=== PATIENT | male | born 1970 | race Caucasian/White ===

== ENCOUNTER 2018-02-05 18:15 | Emergency (ER) | payer BC ==
[2018-02-05 18:33] VITALS: BP 140/85; PULSE 97; TEMP 98.3; BMI 50.4
--- NOTE | 2018-02-05 19:22 | PDOC ---
History of Present Illness - History of Present Illness Initial Comments: This patient is a 47 year old male with a PMHx of sleep apnea, HTN, HLD who presents with right ankle pain. Patient states that on Monday he was walking on a curb and inverted his foot and twisted his ankle. He states that his foot immediately swelled however he was able to sleep without issue. On Monday he experienced significant swelling and applied ice every hour or so with some pain relief. He rates his pain 6-7/10 that becomes 8/10 when ambulating. He states that he notices that his feet have been swollen for approx. 1 month, especially at night. He also notes a recent sinus infection for approx. 1 week and states that he has been on an antibiotic. Denies recent fever, SOB, cough. ENT: Mollyohshantell PCP: Xuan Romero Hx: occasional cigar smoker, occasional EtOH use. <Meggan Dai - Last Filed: 02/05/18 19:35> <Clemencia Medina - Last Filed: 02/06/18 04:28> - General Chief Complaint: Injury Stated Complaint: RT FOOT PAIN Time Seen by Provider: 02/05/18 19:16 Past History <Meggan Dai - Last Filed: 02/05/18 19:35> - Past Medical History COPD: No HTN: Yes - Surgical History Abdominal Surgery: Yes (HERNIA SX) - Suicide/Smoking/Psychosocial Hx Smoking History: Current some day smoker Have you smoked in the past 12 months: Yes Cigars Per Day: 1 Information on smoking cessation initiated: Yes 'Breaking Loose' booklet given: 02/05/18 Hx Alcohol Use: (occasional) <Clemencia Medina - Last Filed: 02/06/18 04:28> - Past Medical History Allergies/Adverse Reactions: Allergies Allergy/AdvReac Type Severity Reaction Status Date / Time No Known Allergies Allergy Verified 02/05/18 18:17 Home Medications: Ambulatory Orders Amox-Tr/K Cl [Augmentin - 875Mg Tablet] 1 tab PO BID 02/05/18 Lisinopril [Prinivil] 20 mg PO DAILY 02/05/18 Review of Systems - Review of Systems Comments:: GENERAL/CONSTITUTIONAL: No fever or chills. No weakness. HEAD, EYES, EARS, NOSE AND THROAT: No change in vision. No ear pain or discharge. No sore throat. CARDIOVASCULAR: No chest pain or shortness of breath. RESPIRATORY: No cough, wheezing, or hemoptysis. GASTROINTESTINAL: No nausea, vomiting, diarrhea or constipation. GENITOURINARY: No dysuria, frequency, or change in urination. MUSCULOSKELETAL: +right foot pain, b/l feet swelling. No neck or back pain. SKIN: No rash NEUROLOGIC: No headache, vertigo, loss of consciousness, or change in strength/ sensation. ENDOCRINE: No increased thirst. No abnormal weight change. HEMATOLOGIC/LYMPHATIC: No anemia, easy bleeding, or history of blood clots. ALLERGIC/IMMUNOLOGIC: No hives or skin allergy. <Meggan Dai - Last Filed: 02/05/18 19:35> *Physical Exam - Vital Signs Last Vital Signs Temp Pulse Resp BP Pulse Ox 98.3 F 97 H 16 140/85 98 02/05/18 18:15 02/05/18 18:15 02/05/18 18:15 02/05/18 18:15 02/05/18 18:15 - Physical Exam Comments: GENERAL: Awake, alert, and fully oriented, in no acute distress EXTREMITIES:1+ b/l ankle and feet edema. Mild tenderness of medial dorsal aspect of right midfoot, minimal tenderness of lateral dorsal midfoot. No ecchymosis or deformities noted. B/l feet, good capillary refill, warm, no other masses or tenderness noted. SKIN: Warm, Dry, normal turgor, no rashes or lesions noted. <Meggan Dai - Last Filed: 02/05/18 19:35> - Vital Signs Last Vital Signs Temp Pulse Resp BP Pulse Ox 98.3 F 97 H 16 140/85 98 02/05/18 18:15 02/05/18 18:15 02/05/18 18:15 02/05/18 18:15 02/05/18 18:15 <Clemencia Medina - Last Filed: 02/06/18 04:28> Progress Note - Progress Note Progress Note: Documentation has been prepared under my direction and personally reviewed by me in its entirety. I attest that this documented accurately reflects all work, treatment, procedures and medical decision making performed by me. <Clemencia Medina - Last Filed: 02/06/18 04:28> Medical Decision Making - Medical Decision Making As noted above, this 47-year-old man presents with history of turning his right foot when stepping off a curb yesterday. Patient notes pain today, especially with weightbearing. Exam as noted above. Right foot x-ray reveals no evidence of acute fracture dislocation. There is a small heel spur present but there is no evidence of fracture of spur. Jamal wrap applied to foot; the patient will continue to ice and elevate for the next 1-2 days and Jamal wrap daily. He should follow-up with his orthopedist, especially if pain persists. He should also follow-up with his general medical doctor prior to his planned trip to [place] in 10 days. She return to the ER if he has severe pain or any new symptoms <Clemencia Medina - Last Filed: 02/06/18 04:28> *DC/Admit/Observation/Transfer - Attestations Scribe Attestion: 02/05/18 19:39 Documentation prepared by Meggan Dai, acting as medical claims examiner for Clemencia Medina MD. <Meggan Dai - Last Filed: 02/05/18 19:35> <Clemencia Medina - Last Filed: 02/06/18 04:28> Diagnosis at time of Disposition: Right foot sprain Qualifiers: Encounter type: initial encounter Qualified Code(s): S93.601A - Unspecified sprain of right foot, initial encounter - Discharge Dispostion Disposition: HOME Condition at time of disposition: Stable - Patient Instructions Printed Discharge Instructions: DI for Foot Sprain Additional Instructions: Continue to ice foot for another 24 hours Jamal wrap during the day for the next week Elevate foot as much as possible for the next 2-3 days Ibuprofen/Naproxen/Acetaminophen as needed for pain Follow-up with your orthopedist if you have persistent pain for more than 5 days Follow-up with your PMD, Dr. Govea within the next week (prior to overseas travel)
== END 2018-02-05 20:04 | disposition home or self-care (01) ==
LOC: FER 18:15
DX: S93.601A Unspecified sprain of right foot, initial encounter (principal); X58.XXXA Exposure to other specified factors, initial encounter; Y93.89 Activity, other specified; Y92.9 Unspecified place or not applicable; F17.210 Nicotine dependence, cigarettes, uncomplicated; I10 Essential (primary) hypertension
CPT/HCPCS: 73630-TC-RT-FY; 99281-25

== ENCOUNTER 2020-05-13 14:20 | Inpatient (IN) | payer BC ==
[2020-05-13 14:56] VITALS: BMI 54.6
[2020-05-13] MEDS ORDERED: DEXAMETHASONE SOD PHOSPHATE 4 MG/1 ML VIAL IVPUSH ONE (15:00)
[2020-05-13 15:46] LABS: BASO % 1.4 % (0-2.0); EOS % 0.2 % (0-4.5); HEMATOCRIT 40.5 % (35.4-49); HEMOGLOBIN 13.8 GM/dL (11.7-16.9); LYMPH % 17.5 % (8-40); MCH 28.6 pg (25.7-33.7); MEAN CELL VOLUME 84.1 fl (80-96); MEAN PLT VOLUME 7.3 fl (7.5-11.1); NEUT % 76.9 % (42.8-82.8); PLATELET COUNT 157 K/MM3 (134-434); RBC 4.82 M/mm3 (4.00-5.60); RDW 17.6 % (11.9-15.9); WHITE BLOOD COUNT 4.7 K/mm3 (4.0-10.0)
[2020-05-13] MEDS ORDERED: DEXAMETHASONE SOD PHOSPHATE 10 MG/1 ML VIAL ONE (15:59)
[2020-05-13 16:13] LABS: CHLORIDE 104 mmol/L (98-107); POTASSIUM 3.9 mmol/L (3.5-5.1); SODIUM 137 mmol/L (136-145)
[2020-05-13 16:16] LABS: ALBUMIN 3.6 g/dl (3.4-5.0); ANION GAP 4 MMOL/L (8-16); BLOOD UREA NITROGEN 9.7 mg/dL (7-18); CO2 29 mmol/L (21-32); GLUCOSE,RANDOM 111 mg/dL (74-106)
[2020-05-13 16:22] LABS: MAGNESIUM 1.9 mg/dL (1.8-2.4)
[2020-05-13 16:24] LABS: SGPT/ALT 74 U/L (13-61)
[2020-05-13 16:25] LABS: CREATININE 0.8 mg/dL (0.55-1.3); SGOT/AST 74 U/L (15-37)
[2020-05-13 16:26] LABS: BILIRUBIN,TOTAL 0.9 mg/dL (0.2-1); TOT PROT 7.3 g/dl (6.4-8.2)
[2020-05-13 16:27] LABS: ALK PHOS 71 U/L (45-117)
[2020-05-13] MEDS ORDERED: REMDESIVIR 200 MG in SODIUM CHLORIDE 210 ML IVPB ONE (17:30)
[2020-05-13 17:35] LABS: LDH 433 U/L (87-246)
[2020-05-13] MEDS ORDERED: AZITHROMYCIN IVPB 500 MG/250 ML BAG IVPB ONE ×2 (18:12→18:26)
[2020-05-13] MEDS ORDERED: CEFTRIAXONE 1 GM in DEXTROSE 5%-WATER - 50 ML IVPB SCH (18:15)
[2020-05-13] MEDS ORDERED: CEFTRIAXONE 1 GM/50 ML BAG ONE (18:26)
[2020-05-13 21:16] VITALS: BP 148/120; PULSE 120; TEMP 98.9
[2020-05-13] MEDS ORDERED: ENOXAPARIN NA (PORCINE) 40 MG/0.4 ML DISP.SYRIN SQ SCH (22:00)
[2020-05-13] MEDS ORDERED: metoPROLOL SUCCINATE 25 MG TAB.SR.24H (FP) PO SCH (22:00)
[2020-05-13] MEDS ORDERED: ENOXAPARIN NA (PORCINE) 100 MG/1 ML DISP.SYRIN SQ SCH (22:02)
[2020-05-13] MEDS ORDERED: APIXABAN 5 MG TABLET PO SCH (22:15)
[2020-05-14] MEDS ORDERED: DEXAMETHASONE SOD PHOSPHATE 4 MG/1 ML VIAL IVPUSH SCH (10:00)
[2020-05-14] MEDS ORDERED: LISINOPRIL 20 MG TABLET PO SCH (10:00)
[2020-05-14] MEDS ORDERED: AZITHROMYCIN IVPB 250 MG in DEXTROSE 5%-WATER - 250 ML IVPB SCH (10:00)
[2020-05-14] MEDS ORDERED: FAMOTIDINE 20 MG TABLET PO SCH (10:00)
[2020-05-14] MEDS ORDERED: REMDESIVIR 100 MG in SODIUM CHLORIDE 230 ML IVPB SCH (17:30)
== END 2020-05-13 21:20 | disposition short-term general hospital (02) | DRG 177 ==
LOC: JER 14:20 → JERBED 17:11
DX: U07.1 COVID-19 (principal); J12.82 Pneumonia due to coronavirus disease 2019; J96.01 Acute respiratory failure with hypoxia; Z68.43 Body mass index [BMI] 50.0-59.9, adult; I10 Essential (primary) hypertension; E78.5 Hyperlipidemia, unspecified; I48.91 Unspecified atrial fibrillation; G47.33 Obstructive sleep apnea (adult) (pediatric); E66.01 Morbid (severe) obesity due to excess calories; R91.8 Other nonspecific abnormal finding of lung field
CPT/HCPCS: 71045-TC-FY; 80053; 82550; 82553; 82728; 83615; 83735; 84443; 84484; 85025; 85379; 86140; 93005; 93010; 99285-25; C9399